=== PATIENT | female | born 1955 | race Two or more races ===

== ENCOUNTER 2018-10-15 02:00 | Inpatient (IN) | payer MEDICAID, OTHER ==
[~2018-10-15] VITALS: Ht 165.1 cm; Wt 62.7 kg
[2018-10-15] MEDS ORDERED: ONDANSETRON 2MG/ML, 2ML ONE ×2 (02:38→15:28)
[2018-10-15] MEDS ORDERED: MORPHINE SULFATE 4 MG/ML, 1ML ONE ×2 (02:39→04:34)
--- NOTE | 2018-10-15 04:09 | NUR ---
CHARTING FILLED IN FROM DOWNTIME PAPERS.
[2018-10-15 04:31] LABS: ANION GAP 6 mmol/L (5-15); CALCIUM 9.2 mg/dL (8.5-10.1); CHLORIDE 109 mmol/L (98-107); CREATININE 0.76 mg/dL (0.55-1.02)
[2018-10-15 04:32] LABS: ALANINE AMINOTRANSFERASE 32 U/L (12-78); ALBUMIN 3.9 g/dL (3.4-5.0); ALKALINE PHOSPHATASE 102 U/L (45-117); BILIRUBIN,TOTAL 0.3 mg/dL (0.2-1.0); TOTAL PROTEIN 7.2 g/dL (6.4-8.2)
--- NOTE | 2018-10-15 04:39 | NUR ---
PT. AMBULATED TO BR WITH STEADY GAIT TO PROVIDE UA. SENT TO LAB. MONITORS REAPPLIED AND PT. MEDICATED FOR MAR FOR RETURN OF 10/10 LEFT ABD PAIN. FAMILY REMAINS AT FOR SUPPORT. SAFETY MEASURES OBSERVED.
[2018-10-15 04:41] LABS: BASOPHILS # (AUTO) 0.02 x10^3/uL (0-0.1); BASOPHILS % (AUTO) 1 % (0-1); EOSINOPHILS % (AUTO) 2 % (1-7); LYMPHOCYTES # (AUTO) 1.81 x10^3/uL (1-3.4); LYMPHOCYTES % (AUTO) 40 % (22-44); MD NO; MEAN PLATELET VOLUME 7.7 fL (7.4-10.4); MONOCYTES # (AUTO) 0.34 x10^3/uL (0.2-0.8); MONOCYTES % (AUTO) 8 % (2-9); NEUTROPHILS # (AUTO) 2.22 x10^3/uL (1.8-6.8); NEUTROPHILS % (AUTO) 49 % (42-75); PLATELET COUNT 180 x10^3/uL (130-400); RED BLOOD COUNT 4.53 x10^6/uL (3.82-5.3); RED CELL DISTRIBUTION WIDTH 13.1 % (9.6-15.2)
--- NOTE | 2018-10-15 04:51 | NUR ---
CALLED LAB TO ASK ABOUT URINE THAT WAS SENT AND ORDERED AGAIN AFTER DOWNTIME. THEY REPORT IT WILL BE RUN NOW.
[2018-10-15] MEDS ORDERED: MORPHINE SULFATE 4 MG/ML, 1ML IVPush ONE (05:00)
[2018-10-15 05:09] LABS: MICROSCOPIC AUTO
[2018-10-15 05:10] LABS: CULTURE INDICATED? YES
--- NOTE | 2018-10-15 05:22 | NUR ---
PT. RESTING ON GURNEY WITH EYES CLOSED. VS UPDATED. RESP EVEN, NON-LABORED. O2 IN PLACE FOR DESAT AFTER MORPHINE. AWAITING PROVIDER RECHECK.
--- NOTE | 2018-10-15 05:27 | NUR ---
PER DR. NOVOA NO BLOOD CULTURES NEEDED PRIOR TO IV ABX.
[2018-10-15] MEDS ORDERED: CEFTRIAXONE PMX 1GM/50ML 50 ML ONE (05:29)
[2018-10-15] MEDS ORDERED: SODIUM CHLORIDE 0.9% 1,000ML IVBOLUS ONE (05:30)
[2018-10-15] MEDS ORDERED: PLEASE ENTER ALLERGIES MC SCH (05:30)
[2018-10-15] MEDS ORDERED: CEFTRIAXONE PMX 1GM/50ML 50 ML IV ONE (05:30)
--- NOTE | 2018-10-15 06:05 | NUR ---
PT. CONTINUES RESTING ON GURNEY WITH NADN. FAMILY REMAINS AT BS. PT. APPEARS TO BE SLEEPING. IVF INFUSING PER ORDER. ALL SAFETY MEASURES OBSERVED. VS UPDATED.
--- NOTE | 2018-10-15 06:36 | NUR ---
REPORT TO MONY ALY. FLOOR READY FOR PT. TRANSPORT.
[2018-10-15] MEDS ORDERED: ONDANSETRON ODT 4 MG PO PRN (08:30)
[2018-10-15] MEDS ORDERED: hydrALAzine 20 MG/ML, 1ML IVPush PRN (08:30)
[2018-10-15] MEDS ORDERED: ONDANSETRON 2MG/ML, 2ML IVPush PRN (08:30)
[2018-10-15] MEDS ORDERED: LABETALOL 5MG/ML, 20ML IVPush PRN (08:30)
[2018-10-15] MEDS ORDERED: morphine SULFATE 10 MG/ML, 1ML IVPush PRN (08:30)
[2018-10-15] MEDS ORDERED: ACETAMINOPHEN 325 MG TABLET PO PRN (08:30)
[2018-10-15] MEDS ORDERED: PLEASE ENTER HEIGHT AND WEIGHT MC SCH (09:00)
[2018-10-15 09:53] LABS: BASOPHILS # (AUTO) 0.02 x10^3/uL (0-0.1); BASOPHILS % (AUTO) 0 % (0-1); EOSINOPHILS % (AUTO) 0 % (1-7); LYMPHOCYTES % (AUTO) 13 % (22-44); MD NO; MEAN CORPUSCULAR HEMOGLOBIN 31.1 pg (27.0-34.8); MEAN CORPUSCULAR HGB CONC 33.2 g/dL (32.4-35.8); MEAN CORPUSCULAR VOLUME 93.7 fL (80-100); MEAN PLATELET VOLUME 7.7 fL (7.4-10.4); MONOCYTES # (AUTO) 0.23 x10^3/uL (0.2-0.8); MONOCYTES % (AUTO) 4 % (2-9); NEUTROPHILS % (AUTO) 84 % (42-75); PLATELET COUNT 168 x10^3/uL (130-400); RED BLOOD COUNT 4.18 x10^6/uL (3.82-5.3); RED CELL DISTRIBUTION WIDTH 13.4 % (9.6-15.2)
[2018-10-15] MEDS: SODIUM CHLORIDE 0.9% 1,000 ML IV SCH (10:30)
[2018-10-15] MEDS: KETOROLAC 30 MG/1 ML IV PRN (10:30)
[2018-10-15 13:25] VITALS: BP 103/59
[2018-10-15] MEDS ORDERED: FENTANYL PF 250 MCG/5ML ONE (15:04)
[2018-10-15] MEDS ORDERED: PROPOFOL 10 MG/ML, 20ML ONE (15:28)
[2018-10-15] MEDS ORDERED: DEXAMETHASONE 4 MG/ML, 1ML ONE (15:28)
[2018-10-15] MEDS ORDERED: FENTANYL PF 100 MCG/2ML IV PRN (15:30)
[2018-10-15] MEDS ORDERED: hydrALAzine 20 MG/ML, 1ML IV PRN (15:30)
[2018-10-15] MEDS ORDERED: LABETALOL 5MG/ML, 20ML IV PRN (15:30)
[2018-10-15] MEDS ORDERED: HYDROmorphone 2 MG/ML, 1ML IVPush PRN (15:30)
[2018-10-15] MEDS ORDERED: ONDANSETRON 2MG/ML, 2ML IV PRN (15:30)
[2018-10-15] MEDS ORDERED: MEPERIDINE/PF 25MG/0.5ML IVPush PRN (15:30)
[2018-10-15] MEDS ORDERED: PROMETHAZINE 25 MG/ML, 1ML IV PRN (15:30)
[2018-10-15] MEDS ORDERED: OXYcodone 5 MG/5 ML ORAL.SOL UDC PO PRN (15:30)
[2018-10-15] MEDS ORDERED: EPHEDRINE 50 MG/ML, 1ML ONE (15:51)
[2018-10-15] MEDS ORDERED: KETOROLAC 30 MG/1 ML ONE (16:02)
[2018-10-15] MEDS ORDERED: FENTANYL PF 100 MCG/2ML ONE (17:06)
[2018-10-15 19:30] VITALS: BP 132/69
[2018-10-16] MEDS: SODIUM CHLORIDE 0.9% 1,000 ML IV SCH ×2 (00:23→11:00)
[2018-10-16 00:41] VITALS: BP 109/56
[2018-10-16] MEDS: KETOROLAC 30 MG/1 ML IV PRN (04:54)
[2018-10-16] MEDS ORDERED: CEFTRIAXONE PMX 1GM/50ML 50 ML IV SCH (05:00)
[2018-10-16 06:14] LABS: ALANINE AMINOTRANSFERASE 27 U/L (12-78); ALBUMIN 3.1 g/dL (3.4-5.0); ANION GAP 7 mmol/L (5-15); CALCIUM 8.4 mg/dL (8.5-10.1); CHLORIDE 113 mmol/L (98-107); CREATININE 0.62 mg/dL (0.55-1.02)
[2018-10-16 06:16] LABS: ALKALINE PHOSPHATASE 91 U/L (45-117); BILIRUBIN,TOTAL 0.2 mg/dL (0.2-1.0); TOTAL PROTEIN 5.8 g/dL (6.4-8.2)
[2018-10-16 08:05] VITALS: BP 118/61
[2018-10-16] MEDS ORDERED: ACET325T26 PO (10:56)
[2018-10-16] MEDS ORDERED: CEFD300C37 PO (10:56)
== END 2018-10-16 12:49 | disposition home or self-care (01) | DRG 661 ==
LOC: ED 05:39 → EDIP 06:07 → 3NE 07:22 → DCLOUNGE 10-16 12:38
PROVIDERS: ADMIT Emergency Medicine; ATTEND Internal Medicine
PROC: 0T778DZ Dilation of Left Ureter with Intraluminal Device, Via Natural or Artificial Opening Endoscopic (ICD-10-PCS; principal; 2018-10-15 16:00)
DX: N13.6 Pyonephrosis (principal); I10 Essential (primary) hypertension; R31.0 Gross hematuria; Z90.710 Acquired absence of both cervix and uterus; R73.9 Hyperglycemia, unspecified
CPT/HCPCS: 36415; 74018; 74176; 76000; 80053; 81001; 83690; 85025; 87077; 87086; 87186; 96365; 96375; G0378; J0696; J1100; J1885; J2405; J2704; J3010; C1769; C2617; J2270; J7030

== ENCOUNTER 2018-10-20 18:36 | Emergency (ER) | payer MEDICAID, OTHER ==
[~2018-10-20] VITALS: Ht 165.1 cm; Wt 64.2 kg
[~2018-10-20 18:36] MED LIST: ACET325T26 PO; CEFD300C37 PO
--- NOTE | 2018-10-20 20:02 | NUR ---
pt amb to 35 from [facility], gave ua cup for sample.
[2018-10-20 20:03] LABS: ALBUMIN 3.7 g/dL (3.4-5.0); CALCIUM 8.7 mg/dL (8.5-10.1); CHLORIDE 112 mmol/L (98-107)
[2018-10-20 20:11] LABS: ALANINE AMINOTRANSFERASE 33 U/L (12-78); ALKALINE PHOSPHATASE 106 U/L (45-117); ANION GAP 4 mmol/L (5-15); BILIRUBIN,TOTAL 0.4 mg/dL (0.2-1.0); CREATININE 0.73 mg/dL (0.55-1.02); TROPONIN I < 0.015 ng/mL (0.000-0.045)
[2018-10-20 20:20] LABS: MD YES; MEAN CORPUSCULAR VOLUME 93.7 fL (80-100); MEAN PLATELET VOLUME 7.9 fL (7.4-10.4); PLATELET COUNT 192 x10^3/uL (130-400); RED BLOOD COUNT 4.58 x10^6/uL (3.82-5.3); RED CELL DISTRIBUTION WIDTH 13.3 % (9.6-15.2)
[2018-10-20] MEDS ORDERED: ONDANSETRON ODT 4 MG PO ONE (20:30)
[2018-10-20] MEDS ORDERED: ONDANSETRON ODT 4 MG ONE (20:37)
--- NOTE | 2018-10-20 20:44 | NUR ---
EPIGASTRIC AND BILATERAL FLANK/BACK PAIN SINCE BEING DISCHARGE 3 DAYS AGO FROM HOSPITAL WITH KIDNEY STONES/PYELONEPHRITIS. PAIN WORSENING TODAY
[2018-10-20 20:49] LABS: EOS#(MANUAL) 0.26 x10^3/uL (0.0-0.4); EOS% (MANUAL) 6 % (1-7); LYMPHS% (MANUAL) 25 % (22-44); MONOS#(MANUAL) 0.35 x10^3/uL (0.3-2.7); MONOS% (MANUAL) 8 % (2-9); REACTIVE LYMPHS # (MANUAL) 0.04 x10^3/uL (0-0); REACTIVE LYMPHS % (MANUAL) 1 % (0-0); SEG#(MANUAL) 2.64 x10^3/uL (1.8-6.8); SEGS% (MANUAL) 60 % (42-75)
[2018-10-20 20:50] LABS: <PLATELET ESTIMATE> ADEQUATE; <PLT MORPHOLOGY> NORMAL PLT MORPH; <RBC MORPHOLOGY> NORMAL
[2018-10-20 21:21] LABS: MICROSCOPIC AUTO
[2018-10-20 21:23] LABS: CULTURE INDICATED? YES
[2018-10-20] MEDS ORDERED: MAALOX/HYOSCYAMINE/LIDOCAINE 45 ML BTL ONE (22:21)
[2018-10-20] MEDS ORDERED: MAALOX/HYOSCYAMINE/LIDOCAINE 45 ML BTL PO ONE (22:30)
[2018-10-20 23:02] VITALS: BP 118/52
== END 2018-10-20 23:27 | disposition home or self-care (01) ==
LOC: ED 21:31
DX: K21.0 Gastro-esophageal reflux disease with esophagitis (principal)
CPT/HCPCS: 36415; 74022; 80053; 81001; 83690; 84484; 85025; 87086; 93005; 99284; Q0162

== ENCOUNTER 2019-04-09 18:41 | Emergency (ER) | payer MEDICAID ==
[~2019-04-09] VITALS: Ht 154.9 cm; Wt 64.0 kg
[2019-04-09 21:17] LABS: BASOPHILS # (AUTO) 0.03 x10^3/uL (0-0.1); BASOPHILS % (AUTO) 1 % (0-1); EOSINOPHILS # (AUTO) 0.22 x10^3/uL (0-0.4); EOSINOPHILS % (AUTO) 5 % (1-7); LYMPHOCYTES % (AUTO) 28 % (22-44); MD NO; MEAN CORPUSCULAR HEMOGLOBIN 30.5 pg (27.0-34.8); MEAN CORPUSCULAR HGB CONC 32.9 g/dL (32.4-35.8); MEAN CORPUSCULAR VOLUME 92.7 fL (80-100); MEAN PLATELET VOLUME 7.4 fL (7.4-10.4); MONOCYTES # (AUTO) 0.35 x10^3/uL (0.2-0.8); MONOCYTES % (AUTO) 8 % (2-9); NEUTROPHILS # (AUTO) 2.47 x10^3/uL (1.8-6.8); NEUTROPHILS % (AUTO) 58 % (42-75); PLATELET COUNT 251 x10^3/uL (130-400); RED BLOOD COUNT 4.53 x10^6/uL (3.82-5.3); RED CELL DISTRIBUTION WIDTH 13.7 % (9.6-15.2)
[2019-04-09 21:29] LABS: ANION GAP 4 mmol/L (5-15); CALCIUM 9.7 mg/dL (8.5-10.1); CHLORIDE 107 mmol/L (98-107); CREATININE 0.77 mg/dL (0.55-1.02)
[2019-04-09 21:33] LABS: ALANINE AMINOTRANSFERASE 25 U/L (12-78); ALKALINE PHOSPHATASE 102 U/L (45-117); BILIRUBIN,TOTAL 0.3 mg/dL (0.2-1.0); TOTAL PROTEIN 7.5 g/dL (6.4-8.2); TROPONIN I < 0.015 ng/mL (0.000-0.045)
--- NOTE | 2019-04-09 22:52 | NUR ---
CP STARTED YESTERDAY, WORSE TODAY "feels like she has something stuck in her throat & a cold for a week", + COUGH. MONITORSD APPLIED, SIDERAIL SUP X2, FAMILY AT BEDSIDE, CALL LIGHT WITHIN REACH
[2019-04-09] MEDS ORDERED: OXYB5TAB10 PO (22:56)
[2019-04-09] MEDS ORDERED: NITR100C6 PO (22:56)
[2019-04-09 22:57] VITALS: BP 134/64
[2019-04-09] MEDS ORDERED: MAALOX/HYOSCYAMINE/LIDOCAINE 45 ML BTL ONE (23:23)
[2019-04-09] MEDS ORDERED: MAALOX/HYOSCYAMINE/LIDOCAINE 45 ML BTL PO ONE (23:30)
== END 2019-04-09 23:50 ==
LOC: ED 23:44
DX: K21.0 Gastro-esophageal reflux disease with esophagitis (principal)
CPT/HCPCS: 36415; 71046; 74220; 80053; 83690; 84484; 85025; 93005; 99284